=== PATIENT | female | born 1950 | race Caucasian/White ===

== ENCOUNTER 2016-07-18 19:08 | Emergency (ER) | payer OTHER ==
[~2016-07-18 19:08] MED LIST: ACCUPRIL PO; ALBUTEROL17 GM INH; AMOXICILLIN PO; AMOXICILLIN875 MG PO; ASPIRIN PO; CLARITIN10 M3 PO; GLUCOPHAGE XR500 MG PO; GLUCOPHAGE500 M1 PO; IBUPROFEN800 MG PO; LIPITOR; LIPITOR PO; LOPRESSOR PO; METFORMIN; METFORMIN PO; NAPROSYN500 MG PO; NIASPAN PO; NORVASC PO; PREDNISONE PO; TESSALON PERLE100 M1 PO; TOPROL XL PO; TUSSIONEX PENN480 ML PO; VALTREX PO; VIBRAMYCIN100 M1 PO; ZITHROMAX PO; ZOLOFT; ZOLOFT PO; [UNRECOGNIZED DRUG - REMARK]
== END 2016-07-18 19:12 | disposition home or self-care (01) ==
LOC: SED 19:08
DX: K04.7 Periapical abscess without sinus (principal)
CPT/HCPCS: 99282